=== PATIENT | male | born 1940 | race African-American/Black ===

== ENCOUNTER 2020-08-18 16:01 | Inpatient (IN) | payer OTHER ==
[~2020-08-18] VITALS: Ht 180.3 cm; Wt 82.3 kg
[~2020-08-18 16:01] MED LIST: ASPIRIN EC81 M1 PO; ASPIRIN81 M2 PO; CARVEDILOL6.25 MG PO; COZAAR100 MG PO; GLIPIZIDE XL5 MG PO; GLUCOTROL5 MG PO; KEFLEX500 MG PO; LIPITOR20 MG PO; LIPITOR40 MG PO; NITROGLYCERIN0.4 MG; PACERONE 200 M200 M1 PO; PLAVIX 75 MG TA75 MG PO; PROAIR HFA8.5 GM IH; VITAMIN B 6; VITAMIN B-1100 M1 PO; VITAMIN B-6100 MG PO; ZPAK
[2020-08-18] MEDS ORDERED: ELIQUIS5 MG PO (16:17)
[2020-08-18] MEDS ORDERED: ASA81BEC PO (16:18)
[2020-08-18] MEDS ORDERED: LIPITOR40 MG PO (16:20)
[2020-08-18] MEDS ORDERED: CARVEDILOL12.5 MG PO (16:21)
[2020-08-18] MEDS ORDERED: HYDRALAZINE 2525 MG PO (16:22)
[2020-08-18] MEDS ORDERED: ISOSORBIDE DN 110 M1 PO (16:26)
[2020-08-18 19:00] VITALS: BP 142/62
[2020-08-19 04:31] LABS: ALBUMIN 2.6 g/dL (3.4-5.0); CALCIUM 8.3 mg/dL (8.5-10.1); CREATININE 3.3 mg/dL (0.6-1.3); TOTAL BILIRUBIN 1.4 mg/dL (<0.1-1.0); TOTAL PROTEIN 7.2 g/dL (6.4-8.2)
[2020-08-19 04:41] LABS: HEMATOCRIT 35.2 % (42.0-52.0); HEMOGLOBIN 11.8 gm/dL (14.0-18.0); MCHC 33.4 g/dL (28.0-37.0); MCV 92.9 fL (80.0-100.0); MPV 9.3 fl. (7.2-11.1); RBC 3.79 mil/uL (4.50-6.00); RDW-CV 13.8 % (10.5-14.5); WBC 6.6 thou/uL (4.0-11.0)
[2020-08-19 07:00] VITALS: BP 138/66
[2020-08-19 19:00] VITALS: BP 102/63
[2020-08-20 08:00] VITALS: BP 146/62
[2020-08-20 09:03] LABS: CALCIUM 8.8 mg/dL (8.5-10.1); CREATININE 3.2 mg/dL (0.6-1.3); POTASSIUM 4.2 mmol/L (3.5-5.1)
[2020-08-20 20:16] VITALS: BP 156/69
[2020-08-21 09:00] VITALS: BP 141/62
[2020-08-21 20:24] VITALS: BP 149/68
[2020-08-22 08:00] VITALS: BP 135/61
[2020-08-22 20:09] VITALS: BP 145/69
[2020-08-23 08:00] VITALS: BP 106/55
[2020-08-23 19:49] VITALS: BP 145/63
[2020-08-24 05:52] VITALS: BP 144/62
[2020-08-24 07:00] VITALS: BP 130/61
[2020-08-24 07:58] VITALS: BP 134/60
[2020-08-24 19:00] VITALS: BP 158/71
[2020-08-25 07:32] VITALS: BP 132/88
[2020-08-25 19:00] VITALS: BP 150/69
[2020-08-26 07:00] VITALS: BP 142/61
[2020-08-26 13:55] LABS: HEMATOCRIT 35.5 % (42.0-52.0); HEMOGLOBIN 11.7 gm/dL (14.0-18.0); MCH 31.2 pg (26.0-34.0); MCV 94.7 fL (80.0-100.0); MPV 9.3 fl. (7.2-11.1); NUCLEATED RBCS 0 /100WBC; PLATELET COUNT* 281 thou/uL (150-400); RBC 3.75 mil/uL (4.50-6.00); RDW-CV 13.9 % (10.5-14.5); WBC 8.4 thou/uL (4.0-11.0)
[2020-08-26 14:16] LABS: ALBUMIN 2.9 g/dL (3.4-5.0); CALCIUM 8.5 mg/dL (8.5-10.1); CREATININE 2.9 mg/dL (0.6-1.3); POTASSIUM 4.9 mmol/L (3.5-5.1); TOTAL BILIRUBIN 0.8 mg/dL (<0.1-1.0); TOTAL PROTEIN 7.8 g/dL (6.4-8.2)
[2020-08-26 15:13] LABS: ABSOLUTE BASOPHILS 0.2 thou/uL (0.0-0.2); ABSOLUTE EOSINOPHILS 0.9 thou/uL (0.0-0.7); ABSOLUTE LYMPHOCYTES 0.9 thou/uL (0.8-5.3); ABSOLUTE MONOCYTES 0.7 thou/uL (0.0-1.2); ABSOLUTE NEUTROPHILS 5.7 thou/uL (1.6-8.1); ATYPICAL LYMPHS 1 %; LARGE PLATELETS OCCASIONAL; PLATELET ESTIMATE ADEQUATE
[2020-08-26 20:12] VITALS: BP 136/67
[2020-08-27 08:16] VITALS: BP 124/54
[2020-08-27 20:22] VITALS: BP 148/62
[2020-08-28 08:08] VITALS: BP 156/74
[2020-08-28 20:00] VITALS: BP 145/70
[2020-08-29 07:30] VITALS: BP 139/66
[2020-08-29 19:00] VITALS: BP 149/69
[2020-08-30 08:00] VITALS: BP 134/56
[2020-08-30 13:25] VITALS: BP 153/67
[2020-08-30 19:31] VITALS: BP 177/72
[2020-08-31 07:00] VITALS: BP 133/67
[2020-08-31 14:13] VITALS: BP 188/85
[2020-08-31 19:00] VITALS: BP 149/63
[2020-09-01 07:30] VITALS: BP 149/76
[2020-09-01 19:00] VITALS: BP 157/73
[2020-09-02 07:30] VITALS: BP 151/56
[2020-09-02 08:04] VITALS: BP 151/56
[2020-09-02 19:00] VITALS: BP 156/74
[2020-09-03 08:00] VITALS: BP 148/65
[2020-09-03 20:00] VITALS: BP 182/81
[2020-09-04 05:09] LABS: HEMATOCRIT 31.2 % (42.0-52.0); HEMOGLOBIN 10.1 gm/dL (14.0-18.0); MCH 31.1 pg (26.0-34.0); MCHC 32.5 g/dL (28.0-37.0); MCV 95.5 fL (80.0-100.0); MPV 9.9 fl. (7.2-11.1); RBC 3.26 mil/uL (4.50-6.00); RDW-CV 14.3 % (10.5-14.5); WBC 6.6 thou/uL (4.0-11.0)
[2020-09-04 05:26] LABS: CALCIUM 8.2 mg/dL (8.5-10.1); CREATININE 2.8 mg/dL (0.6-1.3); POTASSIUM 4.2 mmol/L (3.5-5.1)
[2020-09-04 08:00] VITALS: BP 125/60
[2020-09-04 11:14] VITALS: BP 125/60
[2020-09-04 19:30] VITALS: BP 159/80
[2020-09-05 05:31] LABS: ALBUMIN 2.8 g/dL (3.4-5.0); CALCIUM 8.2 mg/dL (8.5-10.1); CREATININE 2.6 mg/dL (0.6-1.3); PHOSPHORUS* 3.8 mg/dL (2.5-4.9); POTASSIUM 4.2 mmol/L (3.5-5.1)
[2020-09-05 13:31] VITALS: BP 158/75
== END 2020-09-05 14:13 | disposition home health service (06) | DRG 56 ==
LOC: M.REH 16:01
PROVIDERS: Family Medicine; Internal Medicine; ADMIT Physical Medicine & Rehabilitation; ATTEND Physical Medicine & Rehabilitation
DX: I69.351 Hemiplegia and hemiparesis following cerebral infarction affecting right dominant side (principal); I63.9 Cerebral infarction, unspecified; I13.0 Hypertensive heart and chronic kidney disease with heart failure and stage 1 through stage 4 chronic kidney disease, or unspecified chronic kidney disease; R47.01 Aphasia; N18.9 Chronic kidney disease, unspecified; E78.5 Hyperlipidemia, unspecified; G47.33 Obstructive sleep apnea (adult) (pediatric); I50.9 Heart failure, unspecified; I25.5 Ischemic cardiomyopathy; E11.22 Type 2 diabetes mellitus with diabetic chronic kidney disease; R29.810 Facial weakness; I25.10 Atherosclerotic heart disease of native coronary artery without angina pectoris; R13.10 Dysphagia, unspecified; I48.91 Unspecified atrial fibrillation; J44.9 Chronic obstructive pulmonary disease, unspecified; K59.00 Constipation, unspecified; Z23 Encounter for immunization; I25.2 Old myocardial infarction; Z79.899 Other long term (current) drug therapy; Z79.82 Long term (current) use of aspirin; Z87.891 Personal history of nicotine dependence; Z82.49 Family history of ischemic heart disease and other diseases of the circulatory system; Z79.01 Long term (current) use of anticoagulants; Z79.84 Long term (current) use of oral hypoglycemic drugs